=== PATIENT | female | born 1985 | race Caucasian/White ===

== ENCOUNTER 2016-07-16 19:49 | Emergency (ER) | payer OTHER, MEDICAID ==
[2016-07-16 20:10] VITALS: BP 110/70
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
[2016-07-16] MEDS ORDERED: Cephalexin CAP* 500 MG PO ONE (20:45)
== END 2016-07-16 21:06 | disposition home or self-care (01) ==
LOC: UCCORT 19:49
DX: Z48.02 Encounter for removal of sutures (principal); L03.115 Cellulitis of right lower limb
CPT/HCPCS: 99212; A9270-GY; G0463

== ENCOUNTER 2017-07-03 13:30 | Emergency (ER) | payer MEDICARE, MEDICAID ==
[2017-07-03 13:56] VITALS: BP 128/81
--- NOTE | 2017-07-03 14:17 | UC ---
Throat Pain/Nasal Fernando HPI - HPI Summary HPI Summary: Pt c/o gradual onset of sinus pressure, pain X 3 weeks. C/O right facial cheek swelling and nasal cogenstionPt has hx multiple sinus surgeries and possible maxillary fracture as teenager. Has hx lupus - History of Current Complaint Chief Complaint: UCGeneralIllness Stated Complaint: SINUSES,FEVER Time Seen by Provider: 07/03/17 14:08 Hx Obtained From: Patient Hx Last Menstrual Period: unknown, just had mirena taken out ?: No Onset/Duration: Gradual Onset, Lasting Weeks, Still Present, Worse Since - onset Severity: Moderate Pain Intensity: 5 Associated Signs & Symptoms: Positive: Sinus Discomfort Related History: Other (Noted In Comments) - sinus surgery - Epiglottits Risk Factors Epiglottis Risk Factors: Negative - Allergies/Home Medications Allergies/Adverse Reactions: Allergies Allergy/AdvReac Type Severity Reaction Status Date / Time Adhesive Tape Allergy Rash Verified 07/16/16 20:10 latex Allergy Rash Verified 07/03/17 13:52 Home Medications: Home Medications celeCOXIB CAP* [Celebrex CAP*] 100 mg PO BID 07/03/17 [History Confirmed ] PMH/Surg Hx/FS Hx/Imm Hx Previously Healthy: Yes - Surgical History Surgical History: Yes Surgery Procedure, Year, and Place: LAMINECTOMY, DISCECTOMY, TONSILLECTOMY, 5 SINUS SURGRY, BREAST AUGMENTATION, APPENDECTOMY, MECKLES DIVERTICULM. WISDOM TOOTH EXTRACTION, right hip surgery 07/04/16 - Family History Known Family History: Positive: Cardiac Disease, Other - positive FMH for contusion - Social History Occupation: Employed Full-time Lives: With Family Alcohol Use: Rare Substance Use Type: None Smoking Status (MU): Never Smoked Tobacco Have You Smoked in the Last Year: No Review of Systems Constitutional: Chills Skin: Negative Eyes: Negative ENT: Sinus Congestion, Sinus Pain/Tenderness Respiratory: Negative Cardiovascular: Negative Gastrointestinal: Negative Genitourinary: Negative Motor: Negative Neurovascular: Negative Musculoskeletal: Negative Neurological: Negative Psychological: Negative Is Patient Immunocompromised?: No All Other Systems Reviewed And Are Negative: Yes Physical Exam Triage Information Reviewed: Yes Appearance: Well-Appearing Vital Signs: Initial Vital Signs Temp 98.8 F 07/03/17 13:45 Pulse 96 07/03/17 13:45 Resp 16 07/03/17 13:45 BP 128/81 03/02/18 13:45 Pulse Ox 100 07/03/17 13:45 Vital Signs Reviewed: Yes Eye Exam: Normal ENT Exam: Other ENT: Positive: Nasal congestion, TM bulging - bilateral, Sinus tenderness Dental Exam: Normal Neck exam: Normal Respiratory Exam: Normal Cardiovascular Exam: Normal Musculoskeletal Exam: Normal Neurological Exam: Normal Psychological Exam: Normal Skin Exam: Normal Throat Pain/Nasal Course/Dx - Differential Dx/Diagnosis Differential Diagnosis/HQI/PQRI: Sinusitis, URI Provider Diagnoses: Sinusitis Discharge - Discharge Plan Condition: Stable Disposition: HOME Prescriptions: Amoxicillin/Clavulanate TAB* [Augmentin TAB 875*] 875 mg PO Q12H #20 tab Cetirizine HCl/Pseudoephedrine [Zyrtec-D Tablet] 1 each PO DAILY #10 tab predniSONE TAB* [Deltasone TAB*] 20 mg PO DAILY #5 tab Patient Education Materials: Sinusitis (ED) Referrals: Jatinder HARDWICK,Efren Fallon [Primary Care Provider] - If Needed Additional Instructions: Please follow up with your PCP as needed and your ENT provider as scheduled.
== END 2017-07-03 14:37 | disposition home or self-care (01) ==
LOC: UCCORT 13:30
DX: J32.9 Chronic sinusitis, unspecified (principal); M32.9 Systemic lupus erythematosus, unspecified; Z91.040 Latex allergy status; Z91.048 Other nonmedicinal substance allergy status
CPT/HCPCS: 99212; G0463